=== PATIENT | female | born 1965 | race Caucasian/White ===

== ENCOUNTER 2017-05-29 07:04 | Day surgery (SDC) | payer BC ==
[2017-05-24 10:54] VITALS: BMI 39.9
[2017-05-29 07:51] LABS: #Eosinphils 0.1 thou/uL (0.0-0.7); #Monocytes 0.8 thou/uL (0.11-0.59); #Neutrophils 8.2 thou/uL (1.40-6.50); %Basophils 0.1 % (0.0-1.0); %Eosinophils 1.1 % (0.0-10.0); %Lymphocytes 18.2 % (21.0-51.0); Hematocrit 41.9 % (36.0-47.0); Mean Platelet Volume 6.7 fL (7.4-10.4); Red Blood Cell (RBC) Count 4.62 mill/uL (4.20-5.40); White Blood Cell (WBC) Count 11.2 thou/uL (4.8-10.8)
[2017-05-29] MEDS ORDERED: CEFAZOLIN/Water 2 GM/20 ML SYRINGE ONE (07:57)
[2017-05-29 08:12] LABS: Anion Gap 11 mmol/L (10-20); BUN (Urea Nitrogen) 18 mg/dL (9.8-20.1); Calc. Creatinine Clearance 145 mL/min (70-130); Calcium 9.3 mg/dL (7.8-10.44); Carbon Dioxide 30 mmol/L (22-29); Chloride 105 mmol/L (98-107); Estimated GFR-MDRD 86
[2017-05-29] MEDS ORDERED: Sodium Chloride 0.9% 10 ML ONE (08:46)
[2017-05-29] MEDS ORDERED: Midazolam HCl 2 mg/2 ml Vial ONE (08:55)
[2017-05-29] MEDS ORDERED: Fentanyl 250 MCG/5 ML VIAL ONE (08:55)
--- NOTE | 2017-05-29 10:08 | OP ---
DATE OF PROCEDURE: 05/29/2017 SURGEON: Jasper Nunn M.D. RN ACCESS: Ted Ball M.D. PROCEDURES PERFORMED: C5-C6 and C6-C7 anterior cervical discectomy, interbody arthrodesis, intravert ebral biomechanical device, local morselized autograft, demineralized bone matrix, anterior titanium instrumentation C5-C7. PROCEDURE IN DETAIL: The patient was brought into the operating room, intubated. She was positioned supine with the head in modest extension on a gel-filled donut. Incision was made in the right prec ervical area and dissecting medial to the sternocleidomastoid muscle. We identified the anterior cer vical spine and our level was confirmed by x-ray. We placed distraction across intravertebral disks and completely removed the intravertebral disks. The bony endplates were decorticated for the purpos e of arthrodesis and appropriately sized intravertebral biomechanical PEEK devices were brought into the field, filled with demineralized bone matrix and local morselized autograft, and tapped into plac e securely at C5-C6 and C6-C7. Next, an anterior plate was brought in the field and secured to C5, C 6, and C7 using two 14 mm screws at each level. The wound was then extensively irrigated, immaculate hemostasis was secured, and the wound was closed in anatomic layers.
[2017-05-29] MEDS ORDERED: Fentanyl 100 MCG/2 ML VIAL ONE ×2 (10:32→10:55)
[2017-05-29] MEDS ORDERED: HYDROcodone/Acetaminophen 5/325 mg Tablet ONE (12:13)
[2017-05-29] MEDS ORDERED: Hydrocortisone Sod Succ/PF 100 mg/2 ml Vial ONE (14:19)
[2017-05-29] MEDS ORDERED: Propofol 200 MG/20 ML VIAL ONE (14:19)
[2017-05-29] MEDS ORDERED: Ondansetron HCl/PF 4 MG/2 ML Vial ONE (14:19)
[2017-05-29] MEDS ORDERED: PHENYLEPHRINE-NS 100 MCG/ML 10 ML SYRINGE ONE (14:19)
[2017-05-29] MEDS ORDERED: ePHEDrine/0.9% NaCl/PF SYRINGE 50 mg/10 ml ONE (14:19)
[2017-05-29] MEDS ORDERED: Lidocaine 1% PF 5 ML VIAL ONE (14:19)
== END 2017-05-29 12:53 | disposition home or self-care (01) ==
LOC: SDC 07:04
PROVIDERS: ATTEND Neurological Surgery
PROC: 0RG20A0 Fusion of 2 or more Cervical Vertebral Joints with Interbody Fusion Device, Anterior Approach, Anterior Column, Open Approach (ICD-10-PCS; principal; 2017-05-29)
DX: M47.812 Spondylosis without myelopathy or radiculopathy, cervical region (principal); M51.36 Other intervertebral disc degeneration, lumbar region; I48.91 Unspecified atrial fibrillation; E11.9 Type 2 diabetes mellitus without complications; M19.90 Unspecified osteoarthritis, unspecified site; E78.5 Hyperlipidemia, unspecified; E24.0 Pituitary-dependent Cushing's disease; Z79.4 Long term (current) use of insulin; Z79.82 Long term (current) use of aspirin; Z79.899 Other long term (current) drug therapy; Z91.040 Latex allergy status; Z98.51 Tubal ligation status; Z90.49 Acquired absence of other specified parts of digestive tract; Z90.710 Acquired absence of both cervix and uterus; Z98.890 Other specified postprocedural states; Z92.3 Personal history of irradiation; Z87.891 Personal history of nicotine dependence; Z85.42 Personal history of malignant neoplasm of other parts of uterus
CPT/HCPCS: 76001; 80048; 85025; 93005; 93010; 96374; A4216; C1713; J1720; J2001; J2250; J2405; J2704; J3010; J3490